=== PATIENT | male | born 1955 ===

== ENCOUNTER 2021-08-16 06:31 | Day surgery (SDC) | payer MEDICARE, OTHER ==
[~2021-08-16] VITALS: Ht 172.7 cm; Wt 94.0 kg
[~2021-08-16 06:31] MED LIST: 1/2 NS 250ml250 ML; AMLO10 PO; ASPI81CH PO; ASPI81EC PO; ATOR40TA PO; CEPH500 PO; CLOP75 PO; Crestor40 MG PO; ESCI20 PO; HYDACE5 PO; ISOMON20 PO; LISHYD1012 PO; METF500C PO; METO25ER PO; METO50 PO; MULVITMINF PO; NEBI10 PO; TRAZ50 PO; ZESTORETIC 20-1 EAC2 PO; ZOLP5 PO
--- NOTE | 2021-08-16 10:28 | NUR ---
HYDRALAZINE 10MG IV ADMINISTERED. TOLERATES WELL. FEM STOP IN PLACE TO R FEMORAL SITE. WILL CONTINUE TO MONITOR. PT TOLERATING WELL.
--- NOTE | 2021-08-16 11:00 | NUR ---
FEM STOP REMOVED. PT R FEMORAL SITE SOFT AND NO LONGER WITH HEMATOMA. WILL CONTINUE TO MONITOR. VSS. NADN. CALL LIGHT ANURAG VEGA.
--- NOTE | 2021-08-16 13:32 | NUR ---
PT SITTING UP EATING LUNCH AT THIS TIME. R FEMORAL SITE REMAINS CLEAR. NO BLEEDING OR HEMATOMA NOTED. VSS. NADN.
--- NOTE | 2021-08-16 13:56 | NUR ---
PT UP TO THE BATHROOM /C SBA. TOLERATED WELL. -BLEEDING OR SWELLING R GROIN AREA.
--- NOTE | 2021-08-16 14:25 | NUR ---
PT VERBALIZES UNDERSTANDING WRITTEN AND VERBAL INSTRUCTIONS. DENIES QUESTION OR CONCERNS. PT R FEMORAL SITE REMAINS CLEAR/STABLE. PT IV DC'D. CATH INTACT. PRESSURE DSG APPLIED. PT DC TO HOME VIA WC
== END 2021-08-16 14:35 | disposition home or self-care (01) ==
LOC: MHTC 06:31
DX: E11.51 Type 2 diabetes mellitus with diabetic peripheral angiopathy without gangrene (principal); E78.5 Hyperlipidemia, unspecified; K21.9 Gastro-esophageal reflux disease without esophagitis; I25.10 Atherosclerotic heart disease of native coronary artery without angina pectoris; I25.2 Old myocardial infarction; Z95.1 Presence of aortocoronary bypass graft; Z79.84 Long term (current) use of oral hypoglycemic drugs; Z87.891 Personal history of nicotine dependence
CPT/HCPCS: 37226; 75625; 75716; 75774; 76937; 82947; 99152; 99153; A9270; C1725; C1760; C1769; C1874; C1887; C1894; C2623; J0360; J1644; J2250; J2720; J3010; J7030; J7040; Q9967

== ENCOUNTER 2021-09-08 09:59 | Day surgery (SDC) | payer MEDICARE, OTHER ==
[~2021-09-08] VITALS: Ht 172.7 cm; Wt 94.3 kg
[2021-09-08] MEDS ORDERED: ZESTRIL40 M1 PO (10:38)
[2021-09-08 10:56] LABS: BASOPHILS ABSOLUTE AUTO 0.07 K/mm3 (0.00-0.23); BASOPHILS PERCENT AUTO 1 % (0-2); EOSINOPHILS ABSOLUTE AUTO 0.25 K/mm3 (0.00-0.68); EOSINOPHILS PERCENT AUTO 4 % (0-6); Hematocrit 41.4 % (37.0-53.0); Hemoglobin 13.9 g/dL (13.5-17.5); IMMATURE GRAN ABSOLUTE AUTO 0.02 K/mm3 (0.00-0.10); IMMATURE GRAN PERCENT AUTO 0 % (0-1); LYMPHOCYTES ABSOLUTE AUTO 1.25 K/mm3 (0.84-5.20); LYMPHOCYTES PERCENT AUTO 18 % (21-46); MONOCYTES ABSOLUTE AUTO 0.56 K/mm3 (0.16-1.47); MONOCYTES PERCENT AUTO 8 % (4-13); Mean Corpuscular HGB 28.3 pg (26.0-34.0); Mean Corpuscular HGB Conc 33.6 g/dL (31.5-36.5); Mean Corpuscular Volume 84 fL (80-100); Mean Platelet Volume 11.5 fL (9.1-12.4); NEUTROPHILS ABSOLUTE AUTO 4.91 K/mm3 (1.96-9.15); NEUTROPHILS PERCENT AUTO 70 % (41-73); Platelet Count 271 K/mm3 (150-400); RDW Coefficient Variation 13.3 % (11.7-14.2); Red Blood Cell Count 4.91 M/mm3 (4.30-5.90); White Blood Cell Count 7.06 K/mm3 (4.00-11.30)
[2021-09-08 11:08] LABS: Bun/Creatinine Ratio 16.7 (12.0-20.0); Calcium, Blood 9.6 mg/dL (8.5-10.1); Creatinine, Blood 0.78 mg/dL (0.60-1.20); International Normalized Ratio 1.05; Potassium, Blood 3.8 mmol/L (3.5-5.5)
--- NOTE | 2021-09-08 17:02 | NUR ---
PT GRON SITE STABLE. PT UP AND GETTING DRESSED AT THIS TIME. DISCHARGE REVIEWED WITH PT, VERBALIZES UNDERSTANDING. SALINE LOCK REMOVED WITH CATHETER INTACT. PT TO BATHROOM
--- NOTE | 2021-09-08 17:15 | NUR ---
PT DISCHARGED PER W/C WITH ONE STAFF.
== END 2021-09-08 17:00 | disposition home or self-care (01) ==
LOC: MHTC 09:59
PROVIDERS: Radiology Diagnostic Radiology
DX: E11.51 Type 2 diabetes mellitus with diabetic peripheral angiopathy without gangrene (principal); I70.213 Atherosclerosis of native arteries of extremities with intermittent claudication, bilateral legs; I25.10 Atherosclerotic heart disease of native coronary artery without angina pectoris; K21.9 Gastro-esophageal reflux disease without esophagitis; I10 Essential (primary) hypertension; E78.2 Mixed hyperlipidemia; Z95.1 Presence of aortocoronary bypass graft; Z79.82 Long term (current) use of aspirin; Z79.899 Other long term (current) drug therapy
CPT/HCPCS: 36140; 37225; 37229; 37233; 75716; 75774; 76937; 80048; 85025; 85610; 99152; 99153; C1724; C1725; C1760; C1769; C1887; C1894; C2623; J1644; J2060; J2250; J3010; J7030; Q9967

== ENCOUNTER 2023-01-14 21:48 | Observation (INO) | payer MEDICARE, OTHER ==
[~2023-01-14] VITALS: Ht 172.7 cm; Wt 89.9 kg
[~2023-01-14 21:48] MED LIST changes: +ZESTRIL40 M1 PO
[2023-01-14 22:06] LABS: BASOPHILS ABSOLUTE AUTO 0.06 K/mm3 (0.00-0.23); BASOPHILS PERCENT AUTO 1 % (0-2); EOSINOPHILS ABSOLUTE AUTO 0.08 K/mm3 (0.00-0.68); EOSINOPHILS PERCENT AUTO 1 % (0-6); Hematocrit 44.5 % (37.0-53.0); Hemoglobin 15.2 g/dL (13.5-17.5); IMMATURE GRAN ABSOLUTE AUTO 0.02 K/mm3 (0.00-0.10); IMMATURE GRAN PERCENT AUTO 0 % (0-1); LYMPHOCYTES ABSOLUTE AUTO 1.61 K/mm3 (0.84-5.20); LYMPHOCYTES PERCENT AUTO 19 % (21-46); MONOCYTES ABSOLUTE AUTO 0.71 K/mm3 (0.16-1.47); MONOCYTES PERCENT AUTO 8 % (4-13); Mean Corpuscular HGB 28.3 pg (26.0-34.0); Mean Corpuscular HGB Conc 34.2 g/dL (31.5-36.5); Mean Corpuscular Volume 83 fL (80-100); Mean Platelet Volume 11.6 fL (9.1-12.4); NEUTROPHILS ABSOLUTE AUTO 5.97 K/mm3 (1.96-9.15); NEUTROPHILS PERCENT AUTO 71 % (41-73); Platelet Count 241 K/mm3 (150-400); RDW Coefficient Variation 12.9 % (11.7-14.2); RDW Standard Deviation 38.3 fL (35.1-46.3); Red Blood Cell Count 5.37 M/mm3 (4.30-5.90); White Blood Cell Count 8.45 K/mm3 (4.00-11.30)
[2023-01-14 22:31] LABS: Alanine Aminotransfer (ALT/SGP 40 U/L (12-78); Albumin, Blood 3.7 g/dL (3.4-5.0); Albumin/Globulin Ratio 0.9 (0.8-1.8); Alk Phos 86 U/L (50-136); Anion Gap 9 mmol/L (6-16); Aspartate Aminotrans (AST/SGOT 22 U/L (12-37); Bilirubin, Total 0.7 mg/dL (0.1-1.0); Blood Urea Nitrogen 18 mg/dL (8-24); CO2, Blood 25 mmol/L (21-32); Calcium, Blood 9.4 mg/dL (8.5-10.1); Chloride, Blood 107 mmol/L (98-108); Creatinine, Blood 0.86 mg/dL (0.60-1.20); Ethanol (Alcohol), Blood, Med <3 mg/dL; Globulin, Blood 3.9 g/dL (2.2-4.0); Glomerular Filtration Rate 95 (60-); Glucose, Blood 211 mg/dL (70-99); Magnesium, Blood 1.9 mg/dL (1.6-2.4); Potassium, Blood 3.8 mmol/L (3.5-5.5); Sodium, Blood 141 mmol/L (136-145); Total Protein, Blood 7.6 g/dL (6.4-8.2)
[2023-01-14 23:05] LABS: International Normalized Ratio 1.01; Prothrombin Time Results 10.6 Sec (9.7-11.5)
[2023-01-14 23:27] LABS: Influenza A, PCR NEGATIVE (NEGATIVE); Influenza B, PCR NEGATIVE (NEGATIVE); Resp Syncytial Virus, PCR NEGATIVE (NEGATIVE); SARS-Cov-2 (COVID-19) PCR, MMC NEGATIVE (NEGATIVE)
[2023-01-15 02:11] LABS: BASOPHILS ABSOLUTE AUTO 0.05 K/mm3 (0.00-0.23); BASOPHILS PERCENT AUTO 1 % (0-2); EOSINOPHILS ABSOLUTE AUTO 0.01 K/mm3 (0.00-0.68); EOSINOPHILS PERCENT AUTO 0 % (0-6); Hematocrit 42.1 % (37.0-53.0); Hemoglobin 14.1 g/dL (13.5-17.5); IMMATURE GRAN ABSOLUTE AUTO 0.02 K/mm3 (0.00-0.10); IMMATURE GRAN PERCENT AUTO 0 % (0-1); LYMPHOCYTES ABSOLUTE AUTO 0.56 K/mm3 (0.84-5.20); LYMPHOCYTES PERCENT AUTO 7 % (21-46); MONOCYTES PERCENT AUTO 4 % (4-13); Mean Corpuscular HGB 28.1 pg (26.0-34.0); Mean Corpuscular HGB Conc 33.5 g/dL (31.5-36.5); Mean Corpuscular Volume 84 fL (80-100); Mean Platelet Volume 11.2 fL (9.1-12.4); NEUTROPHILS ABSOLUTE AUTO 7.02 K/mm3 (1.96-9.15); NEUTROPHILS PERCENT AUTO 88 % (41-73); Platelet Count 218 K/mm3 (150-400); RDW Coefficient Variation 12.8 % (11.7-14.2); RDW Standard Deviation 38.4 fL (35.1-46.3); Red Blood Cell Count 5.02 M/mm3 (4.30-5.90); White Blood Cell Count 7.96 K/mm3 (4.00-11.30)
[2023-01-15] MEDS ORDERED: TRAZ50 PO (02:30)
[2023-01-15 02:35] LABS: Albumin, Blood 3.4 g/dL (3.4-5.0); Albumin/Globulin Ratio 0.9 (0.8-1.8); Bilirubin, Total 0.7 mg/dL (0.1-1.0); Bun/Creatinine Ratio 19.2 (12.0-20.0); Calcium, Blood 8.7 mg/dL (8.5-10.1); Creatinine, Blood 0.78 mg/dL (0.60-1.20); Globulin, Blood 3.6 g/dL (2.2-4.0); Potassium, Blood 3.9 mmol/L (3.5-5.5)
--- NOTE | 2023-01-15 03:33 | NUR ---
0241 PT ARRIVED TO ROOM FROM ER VIA GURNEY IN STABLE CONDITION. PT REPORTS HEADACHE OF 3/10, NO PAIN MEDS ORDERED, WILL CALL DR AND F/U ON ANY NEW ORDERS. PT REPORTS SOB AND INCREASES WITH EXERTION, REPORTS THIS HAS BEEN NEW X 3 MONTHS, ON RA AT 97%. PT REPORTS N/T IN R HAND AND FOREARM AND R TOES X 2 MONTHS. PT REPORTS BLURRY/DOUBLE VISION, NAUSEA AND DIZZYNESS WITH MOVEMENT, X 3 MONTHS. POOR APPETITE SINCE SEPTEMBER, PT'S PASSED IN SEPTEMBER. NEURO CHECK SLIGHT WEAKNESS X 4, BLURRY/DOUBLE VISION, L EYE DOES NOT MOVE AT ALL (PT REPORTS THIS HAS BEEN HAPPENING SINCE TODAY AND ALSO THAT HE HAD A CATARACT IN THE L EYE), BUT BOTH PUPILS ARE AT A 2 AND REACT BRISK TO LIGHT. PT ALSO REPORTS VISION IS THE SAME IN BOTH EYES. PT REPORTS HE HAS BEEN TRYING A NEW HOME REMEDY ON HIS L EYE THAT HE READ ABOUT FROM DR NIXON FROM [employer], HE RUBS CASTOR OIL ON HIS L EYELID. HE HAS BEEN DOING THIS FOR A COUPLE OF DAYS NOW AND DENIES EVER GETTING IT IN HIS EYE. PT DENIES NEED FOR ANYTHING ELSE AT THIS TIME. NO OTHER APPARENT SIGNS OF DISTRESS. CALL LIGHT IS IN REACH.
[2023-01-15 03:40] VITALS: BP 197/115
--- NOTE | 2023-01-15 04:05 | NUR ---
WENT INTO PT'S ROOM TO GIVE ASPIRIN AND TYLENOL, PT WAS VOMITING, ZOFRAN IS ORDERED PO ONLY, CALLED DR TO GET ZOFRAN ALSO ORDERED IV AND GOT MECLAZINE ORDERED WELL. WILL GIVE ZOFRAN WHEN IT IS AVAILABLE AND PO MEDS SOON PT THINKS HE CAN KEEP THEM DOWN.
--- NOTE | 2023-01-15 04:30 | NUR ---
PT IS AAO X 4, BEDREST FOR NOW UNTIL PT EVAL. PT'S NEURO SHOWS WEAKNESS X 4, L EYE DOES NOT MOVE BUT PUPIL REPONSE IS BRISK AND VISION IS THE SAME THE R EYE PER PT. BLURRED/DOUBLE VISION. DIZZINESS AND NAUSEA WITH MOVEMENT. ZOFRAN GIVEN MULT TIMES IN ER AND ONE TIME SINCE ARRIVAL TO FLOOR. PT REPORTS HEADACHE OF 3/10, TYLENOL GIVEN X 1. MINI BEDSIDE SWALLOW EVAL DONE, PT SEEMED TO SWALLOW OK, BUT HE DID COUGH ONCE AFTER THE LAST SIP AFTER TAKING SEVERAL PILLS.
--- NOTE | 2023-01-15 04:33 | NUR ---
GAVE PT ZOFRAN AND TYLENOL, WILL EVAL FOR EFFECT. MINI BEDSIDE SWALLOW EVAL DONE, PT DID OK, GAVE PILLS AFTER THAT, AFTER TAKING SEVERAL PILLS, AFTER THE LAST SIP OF WATER, THE PT DID COUGH ONCE. NO OTHER APPARENT SIGNS OF DISTRESS. CALL LIGHT IS IN REACH.
--- NOTE | 2023-01-15 05:40 | NUR ---
PT LYING IN BED, EYES CLOSED, APPEARS TO BE RESTING. BREATHING IS EVEN, UNLABORED. NO APPARENT SIGNS OF DISTRESS. CALL LIGHT IS IN REACH. NO OTHER CHANGES THIS SHIFT.
[2023-01-15 07:44] VITALS: BP 184/110
[2023-01-15 10:08] VITALS: BP 169/97
[2023-01-15 17:00] VITALS: BP 149/84
--- NOTE | 2023-01-15 18:57 | NUR ---
SHIFT SUMMARY: PT A/O X 4, ONE ASSIST, PLEASANT AND COOPERATIVE WITH CARE. PT NEURO CHECKS UNCHNGED THROUGHOUT THE DAY. CONTINUES TO HAVE DIZZINESS, DOUBLE VISION AND NAUSEA AT SHIFT END. ALSO C/O LOW GRADE COLVIN. PT STARTED ON VALTREX PER ORDER.
[2023-01-15 19:53] VITALS: BP 148/95
--- NOTE | 2023-01-16 04:42 | NUR ---
SHIFT SUMMARY PT A&OX4 AND RESPONDS TO QUESTIONS APPROPRIATELY. PT HAS A LEFTSIDED FACIAL DROOP WITH BLURRED VISION IN THE LEFT EYE. PT SHOWS NO DEFICITS IN EXTREMITIES. EYE OINTMENT APPLIED AT BEDTIME PER EMAR, EYE GAUZE AND PATCH APPLIED OVER. VSS. NO ACUTE EVENTS AT THIS TIME. PT KEPT IN A POSITION OF SAFETY WITH FALL PRECAUTIONS IN PLACE AND CALL LIGHT WITHIN REACH.
[2023-01-16 05:33] VITALS: BP 183/117
[2023-01-16 07:10] VITALS: BP 173/108
[2023-01-16] MEDS ORDERED: MECL25 PO (13:50)
[2023-01-16] MEDS ORDERED: METO25ER PO (13:50)
[2023-01-16] MEDS ORDERED: HYDCHL25 PO (13:51)
[2023-01-16] MEDS ORDERED: PRED20 PO (13:54)
[2023-01-16] MEDS ORDERED: VALA500 PO (13:54)
[2023-01-16] MEDS ORDERED: ARTIFICIAL TEAR15 M6 LEFTEYE (13:54)
[2023-01-16] MEDS ORDERED: LACRI-LUBE LEFTEYE (14:01)
== END 2023-01-16 16:18 | disposition home health service (06) ==
LOC: ER 21:48 → MEDS 21:49 → ER 01-15 01:56 → MEDS 01-15 01:56
PROVIDERS: Emergency Medicine; Family Medicine; ADMIT Internal Medicine
DX: H49.02 Third [oculomotor] nerve palsy, left eye (principal); R29.810 Facial weakness; E11.9 Type 2 diabetes mellitus without complications; I10 Essential (primary) hypertension; I25.10 Atherosclerotic heart disease of native coronary artery without angina pectoris; Z20.822 Contact with and (suspected) exposure to COVID-19; Z87.891 Personal history of nicotine dependence; Z95.1 Presence of aortocoronary bypass graft; J44.9 Chronic obstructive pulmonary disease, unspecified
CPT/HCPCS: 0241U; 70450; 70496; 70498; 70551; 71045; 80053; 82947; 83735; 84484; 85025; 85379; 85610; 85730; 92610; 93005; 93010; 94640; 94664; 94760; 96372; 96376; 97116; 97161; 97165; 97530; 99285-25; A9270; C8929; G0378; J1650; J2405; J7030; J7512; Q9957; Q9967